=== PATIENT | female | born 1950 | race Caucasian/White ===

== ENCOUNTER 2017-03-08 10:12 | Inpatient (IN) | payer OTHER ==
[~2017-03-08] VITALS: Ht 152.4 cm; Wt 80.3 kg
[2017-03-08 12:00] LABS: BASOPHIL % 0.4 % (0-2); PLATELET COUNT 248 x10^3mcL (130-400)
[2017-03-08 12:09] LABS: RED CELL DISTRIBUTION WIDTH 14.7 % (11.5-14.5)
[2017-03-08 12:10] LABS: CALCIUM 9.5 mg/dL (8.5-10.1); CARBON DIOXIDE 31.5 mmol/L (21-32); CREATININE SERUM 1.2 mg/dL (0.6-1.0); POTASSIUM SERUM 4.6 mmol/L (3.5-5.1)
[2017-03-08 12:14] LABS: ALBUMIN 3.7 g/dL (3.4-5.0); BILIRUBIN TOTAL 0.41 mg/dL (0.20-1.00); CHOLESTEROL/HDL RATIO 2.8; TOTAL PROTEIN, SERUM 8.1 g/dL (6.4-8.2)
[2017-03-08 12:21] LABS: FREE T4 1.04 ng/dL (0.76-1.46); FREE THYROXINE INDEX 2.9 ug/dL (1.4-4.5)
[2017-03-08 12:45] LABS: microscopic required? YES; urine erythrocyte 1+ (NEGATIVE)
[2017-03-08 13:28] LABS: T3 TOTAL 1.16 ng/mL
[2017-03-08] MEDS ORDERED: PLAQUENIL200 MG PO (15:03)
[2017-03-08] MEDS ORDERED: MELOXICAM15 M1 PO (15:04)
[2017-03-08] MEDS ORDERED: ALENDRONATE SOD70 M2 PO (15:04)
[2017-03-08] MEDS ORDERED: METOPROLOL TART50 MG PO (15:04)
[2017-03-08 15:57] VITALS: BP 134/78
[2017-03-08 17:34] LABS: PHOSPHOROUS 3.9 mg/dL (2.5-4.9)
[2017-03-08 19:00] LABS: AMPHETAMINE QUAL UR NONE DETECTED (NEG <=1000)
[2017-03-08 20:53] VITALS: BP 137/93
[2017-03-09 06:07] VITALS: BP 138/72
[2017-03-09 07:40] VITALS: BP 139/69
[2017-03-09 08:55] LABS: BASOPHIL % 0.2 % (0-2); PLATELET COUNT 236 x10^3mcL (130-400); RED CELL DISTRIBUTION WIDTH 14.5 % (11.5-14.5)
[2017-03-09 09:00] LABS: CARBON DIOXIDE 24.5 mmol/L (21-32); CREATININE SERUM 1.3 mg/dL (0.6-1.0); POTASSIUM SERUM 4.3 mmol/L (3.5-5.1)
[2017-03-09 13:40] VITALS: BP 128/52; Ht 152.4 cm; Wt 80.3 kg
[2017-03-09 21:27] VITALS: BP 127/61
[2017-03-10 05:39] VITALS: BP 140/68
[2017-03-10 08:46] VITALS: BP 154/70
[2017-03-10 09:52] LABS: BASOPHIL % 0.5 % (0-2); PLATELET COUNT 224 x10^3mcL (130-400)
[2017-03-10 09:56] LABS: RED CELL DISTRIBUTION WIDTH 15.2 % (11.5-14.5)
[2017-03-10 09:58] LABS: CALCIUM 8.7 mg/dL (8.5-10.1); CARBON DIOXIDE 25.7 mmol/L (21-32); CREATININE SERUM 1.2 mg/dL (0.6-1.0)
[2017-03-10 14:53] VITALS: BP 135/66
[2017-03-10 17:51] VITALS: BP 109/67
[2017-03-10 20:13] VITALS: BP 139/73
[2017-03-11 05:35] VITALS: BP 142/69
[2017-03-11 06:36] LABS: BASOPHIL % 0.5 % (0-2); PLATELET COUNT 217 x10^3mcL (130-400)
[2017-03-11 06:43] LABS: CALCIUM 8.7 mg/dL (8.5-10.1); CARBON DIOXIDE 27.6 mmol/L (21-32); CREATININE SERUM 1.1 mg/dL (0.6-1.0); PHOSPHOROUS 3.3 mg/dL (2.5-4.9); POTASSIUM SERUM 4.1 mmol/L (3.5-5.1)
[2017-03-11 07:05] LABS: RED CELL DISTRIBUTION WIDTH 14.9 % (11.5-14.5)
[2017-03-11 09:17] VITALS: BP 136/65
[2017-03-11 11:38] VITALS: BP 136/65
[2017-03-11] MEDS ORDERED: LEVAQUIN500 M1 PO (11:42)
[2017-03-11] MEDS ORDERED: LAC PO (11:42)
[2017-03-11] MEDS ORDERED: PROVENTIL0.09 MG/A1 INH (11:42)
[2017-03-11] MEDS ORDERED: MEDDP PO (11:43)
== END 2017-03-11 13:58 | disposition home or self-care (01) | DRG 140 ==
LOC: ED 10:12 → DU 14:52
PROVIDERS: Family Medicine; Specialist; ADMIT Family Medicine
DX: J44.1 Chronic obstructive pulmonary disease with (acute) exacerbation (principal); J96.01 Acute respiratory failure with hypoxia; N17.0 Acute kidney failure with tubular necrosis; N39.0 Urinary tract infection, site not specified; I10 Essential (primary) hypertension; M19.90 Unspecified osteoarthritis, unspecified site; Z68.35 Body mass index [BMI] 35.0-35.9, adult; E03.9 Hypothyroidism, unspecified; E66.9 Obesity, unspecified
CPT/HCPCS: 36600; 80307; 83880; 84439; 85378; 94150; J0696; J2930; J3490; J7030; J7613; J7620; J7626; J7644; Q0092; Q9967

== ENCOUNTER 2017-03-14 09:08 | Emergency (ER) | payer OTHER ==
[~2017-03-14 09:08] MED LIST: ALENDRONATE SOD70 M2 PO; LAC PO; LEVAQUIN500 M1 PO; MEDDP PO; MELOXICAM15 M1 PO; METOPROLOL TART50 MG PO; PLAQUENIL200 MG PO; PROVENTIL0.09 MG/A1 INH
[2017-03-14 10:39] LABS: BASOPHIL % 0.7 % (0-2); PLATELET COUNT 271 x10^3mcL (130-400)
[2017-03-14 10:42] LABS: RED CELL DISTRIBUTION WIDTH 15.2 % (11.5-14.5)
[2017-03-14 10:51] LABS: CALCIUM 9.4 mg/dL (8.5-10.1); CARBON DIOXIDE 31.5 mmol/L (21-32); CREATININE SERUM 1.3 mg/dL (0.6-1.0); POTASSIUM SERUM 4.6 mmol/L (3.5-5.1)
[2017-03-14 10:54] LABS: ALBUMIN 3.6 g/dL (3.4-5.0); BILIRUBIN TOTAL 0.3 mg/dL (0.20-1.00); TOTAL PROTEIN, SERUM 8.2 g/dL (6.4-8.2)
[2017-03-14 11:02] LABS: CHOLESTEROL/HDL RATIO 2.2
[2017-03-14 11:06] LABS: T3 TOTAL 0.93 ng/mL
[2017-03-14 11:07] LABS: FREE T4 0.97 ng/dL (0.76-1.46); FREE THYROXINE INDEX 3.1 ug/dL (1.4-4.5); T4(THYROXINE) 9.2 ug/dL (4.7-13.3)
[2017-03-14 13:09] VITALS: BP 120/64
== END 2017-03-14 13:09 | disposition home or self-care (01) ==
LOC: ED 09:08
PROVIDERS: Specialist
DX: J44.9 Chronic obstructive pulmonary disease, unspecified (principal); I10 Essential (primary) hypertension
CPT/HCPCS: 36600; 83880; 84439; J2930; J7030; J7613; J7644; Q0092

== ENCOUNTER 2017-03-18 21:55 | Emergency (ER) | payer OTHER ==
[2017-03-18 22:30] LABS: BASOPHIL % 0.8 % (0-2); PLATELET COUNT 266 x10^3mcL (130-400)
[2017-03-18 22:35] LABS: RED CELL DISTRIBUTION WIDTH 14.9 % (11.5-14.5)
[2017-03-18 22:37] LABS: CARBON DIOXIDE 26.9 mmol/L (21-32); CREATININE SERUM 1.4 mg/dL (0.6-1.0); POTASSIUM SERUM 3.5 mmol/L (3.5-5.1)
[2017-03-18 22:42] LABS: ALBUMIN 3.2 g/dL (3.4-5.0); BILIRUBIN TOTAL 0.4 mg/dL (0.20-1.00); TOTAL PROTEIN, SERUM 7.3 g/dL (6.4-8.2)
[2017-03-18 23:54] VITALS: BP 140/61
== END 2017-03-18 23:54 | disposition home or self-care (01) ==
LOC: ED 21:55
PROVIDERS: Emergency Medicine
DX: J44.1 Chronic obstructive pulmonary disease with (acute) exacerbation (principal)
CPT/HCPCS: 83880; J1200; J7613; Q0092

== ENCOUNTER 2018-07-03 11:47 | Emergency (ER) | payer OTHER ==
[~2018-07-03] VITALS: Ht 157.5 cm; Wt 770.2 kg
[2018-07-03 11:47] VITALS: Ht 157.5 cm; Wt 770.2 kg
[2018-07-03 12:07] LABS: BASOPHIL % 0.9 % (0-2); PLATELET COUNT 260 x10^3mcL (130-400); RED CELL DISTRIBUTION WIDTH 14.2 % (11.5-14.5)
[2018-07-03 12:45] LABS: CALCIUM 8.9 mg/dL (8.5-10.1); CARBON DIOXIDE 25.6 mmol/L (21-32); CREATININE SERUM 1.5 mg/dL (0.6-1.0); POTASSIUM SERUM 4.9 mmol/L (3.5-5.1)
[2018-07-03 12:51] LABS: ALBUMIN 3.6 g/dL (3.4-5.0); BILIRUBIN TOTAL 0.33 mg/dL (0.20-1.00); TOTAL PROTEIN, SERUM 7.8 g/dL (6.4-8.2)
[2018-07-03 14:13] LABS: UA SPECIFIC GRAVITY <=1.005 (1.005-1.035); microscopic required? YES; urine erythrocyte TRACE (NEGATIVE)
[2018-07-03 14:48] LABS: CALCIUM 8.8 mg/dL (8.5-10.1); MAGNESIUM 2.2 mg/dL (1.8-2.4)
[2018-07-03 15:50] VITALS: BP 105/50
== END 2018-07-03 15:50 | disposition home or self-care (01) ==
LOC: ED 11:47
PROVIDERS: Emergency Medicine
DX: F41.9 Anxiety disorder, unspecified (principal); R20.0 Anesthesia of skin; R42 Dizziness and giddiness; I12.9 Hypertensive chronic kidney disease with stage 1 through stage 4 chronic kidney disease, or unspecified chronic kidney disease; N18.3 Chronic kidney disease, stage 3 (moderate); E87.1 Hypo-osmolality and hyponatremia; D64.9 Anemia, unspecified; J44.9 Chronic obstructive pulmonary disease, unspecified; E03.9 Hypothyroidism, unspecified; G93.0 Cerebral cysts
CPT/HCPCS: 83880; J7030; Q0092